=== PATIENT | female | born 1945 | race Caucasian/White ===

== ENCOUNTER → 2017-01-22 | Outpatient (CLI) | payer MEDICARE, BC, OTHER ==
[~2017-01-22] MED LIST: DIPH2.5L; ZYBAN150 PO; synthroid
[2017-01-22 09:33] LABS: ALT/SGPT 13 U/L (12-78); ANION GAP 6 MEQ/L (8-16); AST/SGOT 9 U/L (15-37); BLOOD UREA NITROGEN 15 MG/DL (7-18); CALCIUM LEVEL 8.5 MG/DL (8.8-10.2); CARBON DIOXIDE LEVEL 30 MEQ/L (21-32); CHLORIDE LEVEL 105 MEQ/L (98-107); CREATININE FOR GFR 0.81 MG/DL (0.55-1.02); GLOMERULAR FILTRATION RATE > 60.0 (>45); GLUCOSE, FASTING 110 MG/DL (80-110); POTASSIUM SERUM 4.5 MEQ/L (3.5-5.1); SODIUM LEVEL 141 MEQ/L (136-145)
[2017-01-22 09:34] LABS: ALBUMIN 3.5 GM/DL (3.2-5.2); ALBUMIN/GLOBULIN RATIO 1.09 (1.00-1.93); ALKALINE PHOSPHATASE 91 U/L (45-117); BILIRUBIN,TOTAL 0.9 MG/DL (0.2-1.0); CHOLESTEROL LEVEL 204 MG/DL (<200); TOTAL PROTEIN 6.7 GM/DL (6.4-8.2); TRIGLYCERIDES LEVEL 199 MG/DL (<150)
== END ==
LOC: M WUC 08:07
PROVIDERS: ATTEND Family Medicine
DX: G50.1 Atypical facial pain (principal); E55.9 Vitamin D deficiency, unspecified; E78.5 Hyperlipidemia, unspecified

== ENCOUNTER → 2017-03-08 | Outpatient (CLI) | payer MEDICARE, BC, OTHER ==
--- NOTE | 2017-03-08 14:44 | REPMRS ---
Patient History The patient states she has not had a clinical breast exam in over a year. Patient is postmenopausal. Family history of pancreatic cancer in father. Digital Woman Screen Mammo: March 08, 2017 - Exam #: [id number] Bilateral CC and MLO view(s) were taken. Technologist: Bertha Gayle Technologist Prior study comparison: February 22, 2016, digital woman screen mammo performed at [facility] to [facility]. February 25, 2014, digital woman screen mammo performed at [facility]. FINDINGS: There are scattered fibroglandular densities. There has been no change in the appearance of the mammogram from the prior studies. There is a mild amount of residual fibroglandular tissue which is fairly symmetric. There is no interval development of dominant mass, architectural distortion, or clustered microcalcification suggestive of malignancy. ASSESSMENT: BI-RADS/ACR category 1 mammogram. Negative. Recommendation Routine screening mammogram in 1 year (for women over age 40). This mammogram was interpreted with the aid of an FDA-approved computer-aided dectection system. Electronically Signed By: Chandana Valero MD 03/08/17 [id number]
== END ==
LOC: M WHC 13:23
PROVIDERS: ATTEND Family Medicine
DX: Z12.31 Encounter for screening mammogram for malignant neoplasm of breast (principal); Z78.0 Asymptomatic menopausal state

== ENCOUNTER → 2017-07-26 | Outpatient (CLI) | payer MEDICARE, BC, OTHER ==
[2017-07-26 09:50] LABS: ALBUMIN 3.4 GM/DL (3.2-5.2); ALBUMIN/GLOBULIN RATIO 1.06 (1.00-1.93); ALKALINE PHOSPHATASE 83 U/L (45-117); ALT/SGPT 18 U/L (12-78); ANION GAP 6 MEQ/L (8-16); AST/SGOT 14 U/L (15-37); BLOOD UREA NITROGEN 17 MG/DL (7-18); CALCIUM LEVEL 8.3 MG/DL (8.8-10.2); CARBON DIOXIDE LEVEL 29 MEQ/L (21-32); CHLORIDE LEVEL 104 MEQ/L (98-107); CHOLESTEROL LEVEL 224 MG/DL (<200); CREATININE FOR GFR 0.81 MG/DL (0.55-1.02); GLOMERULAR FILTRATION RATE > 60.0 (>39); GLUCOSE, FASTING 105 MG/DL (83-110); POTASSIUM SERUM 4.1 MEQ/L (3.5-5.1); SODIUM LEVEL 139 MEQ/L (136-145); TOTAL PROTEIN 6.6 GM/DL (6.4-8.2); TRIGLYCERIDES LEVEL 160 MG/DL (<150)
== END ==
LOC: M WUC 08:03
PROVIDERS: ATTEND Family Medicine
DX: E78.5 Hyperlipidemia, unspecified (principal); E03.9 Hypothyroidism, unspecified

== ENCOUNTER → 2018-01-24 | Outpatient (CLI) | payer MEDICARE, OTHER, BC ==
[2018-01-24 09:30] LABS: ALBUMIN 3.5 GM/DL (3.2-5.2); ALKALINE PHOSPHATASE 91 U/L (45-117); ALT/SGPT 13 U/L (12-78); ANION GAP 5 MEQ/L (8-16); AST/SGOT 14 U/L (7-37); BILIRUBIN,TOTAL 0.9 MG/DL (0.2-1.0); BLOOD UREA NITROGEN 16 MG/DL (7-18); CALCIUM LEVEL 8.9 MG/DL (8.8-10.2); CARBON DIOXIDE LEVEL 29 MEQ/L (21-32); CHLORIDE LEVEL 109 MEQ/L (98-107); CHOLESTEROL LEVEL 216 MG/DL (<200); CHOLESTEROL RISK RATIO 3.724 (<5); CREATININE FOR GFR 0.76 MG/DL (0.55-1.30); GLOMERULAR FILTRATION RATE > 60.0 (>39); GLUCOSE, FASTING 109 MG/DL (70-100); HDL CHOLESTEROL 58 MG/DL (>40); NON-HDL-C 158 MG/DL; SODIUM LEVEL 143 MEQ/L (136-145); TRIGLYCERIDES LEVEL 165 MG/DL (<150)
[2018-01-24 09:35] LABS: POTASSIUM SERUM 5.2 MEQ/L (3.5-5.1)
[2018-01-24 10:21] LABS: TOTAL 25(OH) VITAMIN D 28.4 NG/ML (30.0-100.0)
== END ==
LOC: M WUC 08:19
DX: E30.9 Disorder of puberty, unspecified (principal); E55.9 Vitamin D deficiency, unspecified
CPT/HCPCS: 84443

== ENCOUNTER → 2018-04-01 | Outpatient (CLI) | payer MEDICARE, BC | LOC: M WHC 11:20 | DX: Z12.31 Encounter for screening mammogram for malignant neoplasm of breast (principal) | CPT/HCPCS: 77067 ==

== ENCOUNTER → 2018-07-31 | Outpatient (CLI) | payer MEDICARE, OTHER, BC ==
[2018-07-31 09:45] LABS: ALBUMIN 3.5 GM/DL (3.2-5.2); ALKALINE PHOSPHATASE 96 U/L (45-117); ALT/SGPT 16 U/L (12-78); ANION GAP 5 MEQ/L (8-16); AST/SGOT 12 U/L (7-37); BILIRUBIN,TOTAL 0.8 MG/DL (0.2-1.0); BLOOD UREA NITROGEN 16 MG/DL (7-18); CALCIUM LEVEL 8.8 MG/DL (8.8-10.2); CARBON DIOXIDE LEVEL 30 MEQ/L (21-32); CHLORIDE LEVEL 106 MEQ/L (98-107); CHOLESTEROL LEVEL 217 MG/DL (<200); CHOLESTEROL RISK RATIO 3.807 (<5); CREATININE FOR GFR 0.83 MG/DL (0.55-1.30); GLOMERULAR FILTRATION RATE > 60.0 (>39); GLUCOSE, FASTING 107 MG/DL (70-100); HDL CHOLESTEROL 57 MG/DL (>40); LDL CHOLESTEROL 129 MG/DL (<100); NON-HDL-C 160 MG/DL; SODIUM LEVEL 141 MEQ/L (136-145); TRIGLYCERIDES LEVEL 156 MG/DL (<150)
== END ==
LOC: M WUC 08:03
DX: E78.5 Hyperlipidemia, unspecified (principal); E03.9 Hypothyroidism, unspecified
CPT/HCPCS: 84443

== ENCOUNTER 2018-09-08 09:44 | Emergency (ER) | payer MEDICARE, BC, OTHER ==
[2018-09-08 10:21] LABS: BASO # 0.1 10^3/uL (0.0-0.2); BASO % 0.4 % (0.0-1.0); HEMATOCRIT 41.4 % (36.0-47.0); HEMOGLOBIN 13.8 g/dl (12.0-15.5); IMMATURE GRANULOCYTE % 0.5 % (0-3.0); LYMPH % 6.4 % (24.0-44.0); MEAN CORPUSCULAR HEMOGLOBIN 30.1 pg (27.0-33.0); MEAN CORPUSCULAR HGB CONC 33.3 g/dl (32.0-36.5); MEAN CORPUSCULAR VOLUME 90.2 fl (80.0-96.0); MONO # 0.4 10^3/uL (0.0-0.8); MONO % 2.6 % (0.0-5.0); NEUTROPHILS # 14.6 10^3/uL (1.8-7.7); NEUTROPHILS % 90.1 % (36.0-66.0); PLATELET COUNT, AUTOMATED 296 10^3/uL (150-450); RED BLOOD COUNT 4.59 10^6/uL (4.00-5.40); RED CELL DISTRIBUTION WIDTH 12.3 % (11.5-14.5); WHITE BLOOD COUNT 16.2 10^3/uL (4.0-10.0)
[2018-09-08] MEDS: NS 1,000 ML IV ×2 (10:34→14:15)
[2018-09-08] MEDS: ONDANSETRON 4MG/2ML VIAL (J2405) IV (10:34)
[2018-09-08] MEDS: MORPHINE 2 MG/ML 1ML SYRINGE (J2270) IV ×2 (10:34→15:10)
[2018-09-08 11:09] LABS: INR 0.92; PROTHROMBIN TIME 12.5 SECONDS (12.1-14.4)
[2018-09-08 11:10] LABS: PARTIAL THROMBOPLASTIN TIME 28.7 SECONDS (25.4-37.6)
[2018-09-08 11:55] LABS: LACTIC ACID SEPSIS PROTOCOL 1.6 MMOL/L (0.4-2.0)
[2018-09-08 12:04] LABS: ALBUMIN 3.6 GM/DL (3.2-5.2); ALBUMIN/GLOBULIN RATIO 1.13 (1.00-1.93); ALKALINE PHOSPHATASE 101 U/L (45-117); ALT/SGPT 47 U/L (12-78); AMYLASE 322 U/L (25-115); ANION GAP 9 MEQ/L (8-16); AST/SGOT 57 U/L (7-37); BILIRUBIN,DIRECT 0.3 MG/DL (0.0-0.2); BILIRUBIN,TOTAL 0.9 MG/DL (0.2-1.0); BLOOD UREA NITROGEN 12 MG/DL (7-18); CALCIUM LEVEL 8.5 MG/DL (8.8-10.2); CARBON DIOXIDE LEVEL 27 MEQ/L (21-32); CHLORIDE LEVEL 105 MEQ/L (98-107); CPK CREATINE PHOSPHOKINASE 198 U/L (26-192); CREATININE FOR GFR 0.73 MG/DL (0.55-1.30); GLOMERULAR FILTRATION RATE > 60.0 (>39); GLUCOSE, FASTING 174 MG/DL (70-100); LIPASE 2395 U/L (73-393); MB/CK RELATIVE INDEX 4.34 (< OR =4); POTASSIUM SERUM 3.9 MEQ/L (3.5-5.1); SODIUM LEVEL 141 MEQ/L (136-145); TOTAL PROTEIN 6.8 GM/DL (6.4-8.2); TROPONIN I 2.32 NG/ML (< 0.10)
[2018-09-08] MEDS ORDERED: MORPHINE 4 MG/ML 1ML VIAL/SYRINGE (J2270) IV (12:30)
[2018-09-08 13:14] LABS: CPK CREATINE PHOSPHOKINASE 202 U/L (26-192); MB/CK RELATIVE INDEX 5.54 (< OR =4); TROPONIN I 3.32 NG/ML (< 0.10)
[2018-09-08] MEDS: ASPIRIN 81 MG CHEW TABLET PO (14:15)
== END 2018-09-08 15:11 | disposition short-term general hospital (02) ==
LOC: M ED 09:44
DX: K85.90 Acute pancreatitis without necrosis or infection, unspecified (principal); R79.89 Other specified abnormal findings of blood chemistry; E78.5 Hyperlipidemia, unspecified; E07.9 Disorder of thyroid, unspecified; E55.9 Vitamin D deficiency, unspecified; Z79.899 Other long term (current) drug therapy; Z88.0 Allergy status to penicillin; F17.210 Nicotine dependence, cigarettes, uncomplicated
CPT/HCPCS: J2405

== ENCOUNTER → 2018-09-18 | Outpatient (CLI) | payer MEDICARE, BC, OTHER | LOC: M WUC 08:19 | DX: J18.9 Pneumonia, unspecified organism (principal) | CPT/HCPCS: 71046 ==

== ENCOUNTER → 2018-10-07 | Outpatient (CLI) | payer MEDICARE, BC, OTHER | LOC: M WUC 14:01 | DX: J98.11 Atelectasis (principal); R06.02 Shortness of breath | CPT/HCPCS: 71046 ==

== ENCOUNTER → 2019-01-10 | Outpatient (CLI) | payer MEDICARE, BC, OTHER ==
[~2019-01-10] MED LIST changes: +LEVO50TA5; +RANI-280; +VITA50005
--- NOTE | 2019-01-10 11:17 | REP ---
MRI ABDOMEN WITHOUT CONTRAST (MRCP): 01/10/2019. Clinical history: Idiopathic acute pancreatitis. Chronic abdominal pain. Comparison: CT abdomen and pelvis 09/08/2018. Technique: Standard MRCP protocol was utilized with coronal T2, axial fat suppressed T2 images, with thick slab and 3-D gradient echo MRCP with reconstructions. Findings: Liver is not enlarged in the right lobe. It is homogeneous in signal. The left lobe is mildly prominent. Liver contours are smooth. No mass or suspected biliary dilatation. Gallbladder is well distended without wall thickening, stone or sludge evident. Common duct has a maximum diameter of 6 mm in the antonio hepatis and 4.7 mm in the pancreatic head region. No filling defects are noted. Pancreatic duct is not abnormally dilated. There are no peripancreatic fluid collections or pancreatic masses evident. Impression: 1. Negative MRCP for common duct dilatation or filling defect. The intrahepatic and intrapancreatic ducts are not abnormal. 2. There is no hepatomegaly with the right lobe less than 15 cm in vertical diameter. The left lobe appears mildly prominent but hepatic contours are smooth and homogeneous appearance to the parenchyma. 3. The visualized pancreas on the T2 images is without any acute finding. Electronically Signed by Rj Hernandez MD 01/10/2019 06:34 P
== END ==
LOC: M RAD 08:35
PROVIDERS: ATTEND Internal Medicine Gastroenterology
DX: K85.00 Idiopathic acute pancreatitis without necrosis or infection (principal)

== ENCOUNTER → 2019-02-03 | Outpatient (CLI) | payer MEDICARE, BC, OTHER ==
[2019-02-03 10:13] LABS: ALBUMIN 3.4 GM/DL (3.2-5.2); ALT/SGPT 19 U/L (12-78); BILIRUBIN,TOTAL 1.2 MG/DL (0.2-1.0); BLOOD UREA NITROGEN 15 MG/DL (7-18); CALCIUM LEVEL 8.6 MG/DL (8.8-10.2); CARBON DIOXIDE LEVEL 30 MEQ/L (21-32); CHLORIDE LEVEL 106 MEQ/L (98-107); CHOLESTEROL LEVEL 131 MG/DL (<200); CHOLESTEROL RISK RATIO 2.183 (<5); CREATININE FOR GFR 0.75 MG/DL (0.55-1.30); GLOMERULAR FILTRATION RATE > 60.0 (>39); GLUCOSE, FASTING 98 MG/DL (70-100); HDL CHOLESTEROL 60 MG/DL (>40); LDL CHOLESTEROL 50 MG/DL (<100); NON-HDL-C 71 MG/DL; POTASSIUM SERUM 4.7 MEQ/L (3.5-5.1); SODIUM LEVEL 140 MEQ/L (136-145); TOTAL PROTEIN 6.5 GM/DL (6.4-8.2); TRIGLYCERIDES LEVEL 103 MG/DL (<150)
[2019-02-03 10:14] LABS: TOTAL 25(OH) VITAMIN D 67.4 NG/ML (30.0-100.0)
== END ==
LOC: M WUC 08:20
PROVIDERS: ATTEND Family Medicine
DX: Z00.00 Encounter for general adult medical examination without abnormal findings (principal); E78.5 Hyperlipidemia, unspecified; E03.9 Hypothyroidism, unspecified

== ENCOUNTER → 2019-05-05 | Outpatient (CLI) | payer MEDICARE, BC ==
--- NOTE | 2019-05-05 20:21 | REPMRS ---
Patient History The patient states she had a clinical breast exam in 03/2019. Family history of pancreatic cancer in father. 3D TOMOSYNTHESIS WAS PERFORMED. [facility] for [facility] 3.8%. Digital Woman Screen Mammo: May 05, 2019 - Exam #: [id number] Bilateral CC and MLO view(s) were taken. Technologist: Saskia Chavez, Technologist Prior study comparison: April 01, 2018, digital woman screen mammo performed at [facility]. March 08, 2017, digital woman screen mammo performed at [facility]. FINDINGS: The breast tissue is heterogeneously dense. This may lower the sensitivity of mammography. There has been no change in the appearance of the mammogram from the prior studies. There is a moderate amount of residual fibroglandular tissue which is fairly symmetric. There is no interval development of dominant mass, areas of architectural distortion, or clustered microcalcification typical of malignancy. Assessment: BI-RADS/ACR category 1 mammogram. Negative Mammogram. Recommendation Routine screening mammogram in 1 year (for women over age 40). This mammogram was interpreted with the aid of an FDA-approved computer-aided dectection system. Electronically Signed By: Chandana Valero MD 05/05/192020
== END ==
LOC: M WHC 13:53
PROVIDERS: ATTEND Family Medicine
DX: Z12.31 Encounter for screening mammogram for malignant neoplasm of breast (principal); Z80.0 Family history of malignant neoplasm of digestive organs

== ENCOUNTER → 2019-08-14 | Outpatient (CLI) | payer MEDICARE, BC ==
[2019-08-14 11:05] LABS: ALBUMIN 3.5 GM/DL (3.2-5.2); ALT/SGPT 17 U/L (12-78); BILIRUBIN,TOTAL 1.1 MG/DL (0.2-1.0); BLOOD UREA NITROGEN 14 MG/DL (7-18); CALCIUM LEVEL 8.6 MG/DL (8.8-10.2); CARBON DIOXIDE LEVEL 31 MEQ/L (21-32); CHLORIDE LEVEL 106 MEQ/L (98-107); CHOLESTEROL LEVEL 125 MG/DL (<200); CHOLESTEROL RISK RATIO 1.923 (<5); FREE T4 1.25 NG/DL (0.76-1.46); GLOMERULAR FILTRATION RATE > 60.0 (>39); GLUCOSE, FASTING 112 MG/DL (70-100); HDL CHOLESTEROL 65 MG/DL (>40); LDL CHOLESTEROL 35 MG/DL (<100); NON-HDL-C 60 MG/DL; POTASSIUM SERUM 4.9 MEQ/L (3.5-5.1); SODIUM LEVEL 140 MEQ/L (136-145); TOTAL PROTEIN 6.6 GM/DL (6.4-8.2); TRIGLYCERIDES LEVEL 125 MG/DL (<150)
== END ==
LOC: M WUC 08:03
PROVIDERS: ATTEND Family Medicine
DX: E78.5 Hyperlipidemia, unspecified (principal); E03.9 Hypothyroidism, unspecified

== ENCOUNTER → 2020-06-24 | Outpatient (CLI) | payer MEDICARE, BC ==
[2020-06-24 14:00] LABS: ALBUMIN 3.6 GM/DL (3.2-5.2); ALT/SGPT 15 U/L (12-78); BILIRUBIN,TOTAL 1.1 MG/DL (0.2-1.0); BLOOD UREA NITROGEN 17 MG/DL (7-18); CALCIUM LEVEL 8.9 MG/DL (8.8-10.2); CARBON DIOXIDE LEVEL 32 MEQ/L (21-32); CHLORIDE LEVEL 104 MEQ/L (98-107); CHOLESTEROL LEVEL 257 MG/DL (<200); CHOLESTEROL RISK RATIO 4.431 (<5); CREATININE FOR GFR 0.89 MG/DL (0.55-1.30); GLOMERULAR FILTRATION RATE > 60.0 (>39); GLUCOSE, FASTING 109 MG/DL (70-100); HDL CHOLESTEROL 58 MG/DL (>40); LDL CHOLESTEROL 161 MG/DL (<100); NON-HDL-C 199 MG/DL; POTASSIUM SERUM 4.6 MEQ/L (3.5-5.1); SODIUM LEVEL 137 MEQ/L (136-145); TOTAL PROTEIN 7.1 GM/DL (6.4-8.2); TRIGLYCERIDES LEVEL 190 MG/DL (<150)
== END ==
LOC: M WUC 08:01
PROVIDERS: ATTEND Family Medicine
DX: E78.5 Hyperlipidemia, unspecified (principal); E03.9 Hypothyroidism, unspecified; R73.09 Other abnormal glucose; E55.9 Vitamin D deficiency, unspecified

== ENCOUNTER → 2020-07-12 | Outpatient (CLI) | payer MEDICARE, BC ==
--- NOTE | 2020-07-12 14:00 | REPMRS ---
Patient History The patient states she had a clinical breast exam in June 2020. Family history of pancreatic cancer in father. Digital Woman Screen Mammo: July 12, 2020 - Exam #: [id number] Bilateral CC and MLO view(s) were taken. Technologist: Gema Amin, Technologist Prior study comparison: May 05, 2019, bilateral digital woman screen mammo performed at [facility]. April 01, 2018, digital woman screen mammo performed at [facility]. March 08, 2017, digital woman screen mammo performed at [facility]. FINDINGS: There are scattered fibroglandular densities. The Volpara volumetric breast density category is:B. There has been no change in the appearance of the mammogram from the prior studies. There is a mild amount of scattered fibroglandular density which is fairly symmetric. There is no interval development of dominant mass, architectural distortion, or grouped microcalcification suggestive of malignancy. 3-D tomosynthesis shows no additional findings. Assessment: BI-RADS/ACR category 1 mammogram. Negative Mammogram. Recommendation Routine screening mammogram of both breasts in 1 year (for women over age 40). This patient's Lifetime Breast Cancer Risk is estimated at 3.6 %. This mammogram was interpreted with the aid of an FDA-approved computer-aided dectection system. Electronically Signed By: Geronimo Pollard MD 07/12/20 1400
== END ==
LOC: M WHC 09:54
PROVIDERS: ATTEND Family Medicine
DX: Z12.31 Encounter for screening mammogram for malignant neoplasm of breast (principal)

== ENCOUNTER → 2020-12-30 | Outpatient (CLI) | payer MEDICARE, BC ==
[2020-12-30 10:45] LABS: BASO # 0.1 10^3/uL (0.0-0.2); BASO % 1.1 % (0.0-1.0); EOS # 0.3 10^3/uL (0.0-0.5); EOS % 2.7 % (0.0-3.0); HEMATOCRIT 43.2 % (36.0-47.0); HEMOGLOBIN 13.8 g/dl (12.0-15.5); LYMPH # 2.5 10^3/uL (1.5-5.0); LYMPH % 22.2 % (24.0-44.0); MEAN CORPUSCULAR HEMOGLOBIN 29.4 pg (27.0-33.0); MEAN CORPUSCULAR HGB CONC 31.9 g/dl (32.0-36.5); MEAN CORPUSCULAR VOLUME 92.1 fl (80.0-96.0); MONO # 0.8 10^3/uL (0.0-0.8); MONO % 6.7 % (2.0-8.0); NEUTROPHILS # 7.6 10^3/uL (1.5-8.5); NEUTROPHILS % 66.9 % (36.0-66.0); PLATELET COUNT, AUTOMATED 327 10^3/uL (150-450); RED BLOOD COUNT 4.69 10^6/uL (4.00-5.40); WHITE BLOOD COUNT 11.3 10^3/uL (4.0-10.0)
[2020-12-30 11:22] LABS: ALBUMIN 3.6 GM/DL (3.2-5.2); ALT/SGPT 16 U/L (12-78); BILIRUBIN,TOTAL 0.8 MG/DL (0.2-1.0); BLOOD UREA NITROGEN 12 MG/DL (7-18); CALCIUM LEVEL 9.1 MG/DL (8.8-10.2); CARBON DIOXIDE LEVEL 32 MEQ/L (21-32); CHLORIDE LEVEL 105 MEQ/L (98-107); CHOLESTEROL LEVEL 246 MG/DL (<200); CREATININE FOR GFR 0.78 MG/DL (0.55-1.30); GLOMERULAR FILTRATION RATE > 60.0 (>39); GLUCOSE, FASTING 111 MG/DL (70-100); HDL CHOLESTEROL 52 MG/DL (>40); LDL CHOLESTEROL 148 MG/DL (<100); NON-HDL-C 194 MG/DL; POTASSIUM SERUM 4.3 MEQ/L (3.5-5.1); SODIUM LEVEL 141 MEQ/L (136-145); TOTAL PROTEIN 6.9 GM/DL (6.4-8.2); TRIGLYCERIDES LEVEL 230 MG/DL (<150)
[2020-12-31 10:04] LABS: TOTAL 25(OH) VITAMIN D 26.6 NG/ML (30.0-100.0)
== END ==
LOC: M WUC 08:17
PROVIDERS: ATTEND Family Medicine
DX: E78.5 Hyperlipidemia, unspecified (principal); E03.9 Hypothyroidism, unspecified; E55.9 Vitamin D deficiency, unspecified; Z79.899 Other long term (current) drug therapy

== ENCOUNTER → 2022-01-10 | Outpatient (CLI) | payer MEDICARE, BC ==
[2022-01-10 13:44] LABS: ALBUMIN 3.5 GM/DL (3.2-5.2); ALT/SGPT 14 U/L (12-78); BILIRUBIN,TOTAL 0.9 MG/DL (0.2-1.0); BLOOD UREA NITROGEN 17 MG/DL (7-18); CALCIUM LEVEL 9.4 MG/DL (8.8-10.2); CARBON DIOXIDE LEVEL 31 MEQ/L (21-32); CHLORIDE LEVEL 106 MEQ/L (98-107); CHOLESTEROL LEVEL 157 MG/DL (<200); CHOLESTEROL RISK RATIO 2.907 (<5); CREATININE FOR GFR 0.86 MG/DL (0.55-1.30); GLOMERULAR FILTRATION RATE > 60.0 (>39); GLUCOSE, FASTING 116 MG/DL (70-100); HDL CHOLESTEROL 54 MG/DL (>40); LDL CHOLESTEROL 70 MG/DL (<100); NON-HDL-C 103 MG/DL; POTASSIUM SERUM 4.3 MEQ/L (3.5-5.1); SODIUM LEVEL 141 MEQ/L (136-145); TOTAL 25(OH) VITAMIN D 24.6 NG/ML (30.0-100.0); TOTAL PROTEIN 6.5 GM/DL (6.4-8.2); TRIGLYCERIDES LEVEL 163 MG/DL (<150)
== END ==
LOC: M WUC 08:51
PROVIDERS: ATTEND Family Medicine
DX: R73.01 Impaired fasting glucose (principal); E78.5 Hyperlipidemia, unspecified; E03.9 Hypothyroidism, unspecified; E55.9 Vitamin D deficiency, unspecified; Z79.899 Other long term (current) drug therapy

== ENCOUNTER → 2022-12-27 | Outpatient (REF) | payer MEDICARE, OTHER | LOC: M LAB REF 12:17 | PROVIDERS: ATTEND Family Medicine | DX: D72.820 Lymphocytosis (symptomatic) (principal) ==

== ENCOUNTER → 2024-04-25 | Outpatient (REF) | payer MEDICARE, BC, OTHER | LOC: M LAB REF 16:17 | PROVIDERS: ATTEND Family Medicine | DX: D72.829 Elevated white blood cell count, unspecified (principal); J44.9 Chronic obstructive pulmonary disease, unspecified ==

== ENCOUNTER → 2024-04-25 | Outpatient (REF) | payer MEDICARE, BC, OTHER | LOC: M LAB REF 12:18 | PROVIDERS: ATTEND Family Medicine | DX: N39.0 Urinary tract infection, site not specified (principal); D72.829 Elevated white blood cell count, unspecified; J44.9 Chronic obstructive pulmonary disease, unspecified ==

== ENCOUNTER → 2025-06-12 | Outpatient (CLI) | payer MEDICARE, BC | LOC: M WHC 10:25 | PROVIDERS: ATTEND Family Medicine | DX: Z12.31 Encounter for screening mammogram for malignant neoplasm of breast (principal); R92.323 Mammographic fibroglandular density, bilateral breasts ==

== ENCOUNTER → 2025-07-20 | Outpatient (CLI) | payer MEDICARE, BC | LOC: M WUC 11:22 | PROVIDERS: ATTEND Family Medicine | DX: M25.531 Pain in right wrist (principal) ==

== ENCOUNTER → 2025-09-01 | Outpatient (CLI) | payer MEDICARE, BC | LOC: M WUC 12:54 | PROVIDERS: ATTEND Family Medicine | DX: R05.9 Cough, unspecified (principal); J44.9 Chronic obstructive pulmonary disease, unspecified ==

== ENCOUNTER → 2025-09-18 | Outpatient (CLI) | payer MEDICARE, BC ==
[~2025-09-18] MED LIST changes: +ISOVUE-370 76% 100 ML VIAL As Ordered ONE
== END ==
LOC: M RAD 14:31
PROVIDERS: ATTEND Family Medicine
DX: R10.11 Right upper quadrant pain (principal)
CPT/HCPCS: 74177; Q9967